=== PATIENT | female | born 1995 | race American Indian/Alaskan Native ===

== ENCOUNTER 2021-12-11 21:17 | Emergency (ER) | payer OTHER, MEDICAID ==
[2021-12-11] MEDS ORDERED: Acetaminophen/oxyCODONE 325-5 MG Tab PO ONE (21:18)
[2021-12-11] MEDS ORDERED: Ketorolac 30 MG/ML SDV IVPUSH ONE (21:52)
[2021-12-11] MEDS ORDERED: Morphine 4 MG/ML VIAL IVPUSH ONE (21:53)
[2021-12-11] MEDS ORDERED: Sodium Chloride 0.9% 10 ML Syringe FLUSH PRN (22:09)
[2021-12-11] MEDS ORDERED: Lidocaine 2% Viscous Solution 15 ML UD PO ONE (22:22)
[2021-12-11 22:33] LABS: ESTIMATED GFR 80 mL/min (>60)
[2021-12-11] MEDS ORDERED: Cephalexin 500 MG Cap PO STA (22:49)
[2021-12-11] MEDS ORDERED: Lidocaine 2% Viscous Solution 15 ML UD TOP ONE (23:12)
[2021-12-12 01:18] VITALS: BP 113/67; PULSE 71
== END 2021-12-12 00:15 | disposition home or self-care (01) ==
LOC: FB.ED 21:17
DX: S82.142A Displaced bicondylar fracture of left tibia, initial encounter for closed fracture (principal); S60.512A Abrasion of left hand, initial encounter; S60.511A Abrasion of right hand, initial encounter; S80.812A Abrasion, left lower leg, initial encounter; S80.811A Abrasion, right lower leg, initial encounter; F10.129 Alcohol abuse with intoxication, unspecified; Z88.5 Allergy status to narcotic agent; Y90.0 Blood alcohol level of less than 20 mg/100 ml; V29.9XXA Motorcycle rider (driver) (passenger) injured in unspecified traffic accident, initial encounter
CPT/HCPCS: 36415; 73560; 73600; 80053; 80307; 85025; 85610; 85730; 96374; 96375; 99284; A9270; J1885; J2270; J3490

== ENCOUNTER 2022-01-03 17:37 | Emergency (ER) | payer MEDICAID ==
[2022-01-03 17:59] VITALS: BP 125/81; PULSE 110
== END 2022-01-03 21:15 ==
LOC: FB.ED 17:37
DX: T81.49XA Infection following a procedure, other surgical site, initial encounter (principal)
CPT/HCPCS: 36415; 85025; 86140; 99282; 99284

== ENCOUNTER 2022-01-09 19:05 | Emergency (ER) | payer MEDICAID ==
[2022-01-11 21:44] VITALS: BP 130/73; PULSE 103
== END 2022-01-09 20:05 | disposition home or self-care (01) ==
LOC: FB.ED 19:05
DX: S82.142A Displaced bicondylar fracture of left tibia, initial encounter for closed fracture (principal); Z88.5 Allergy status to narcotic agent; Z86.16 Personal history of COVID-19
CPT/HCPCS: 99282

== ENCOUNTER 2022-02-28 11:10 | Emergency (ER) | payer MEDICAID ==
[2022-02-28] MEDS: Acetaminophen 500 MG Tab PO ONE (11:32)
[2022-02-28] MEDS ORDERED: Apixaban 5 MG Tab PO SCH (12:15)
[2022-02-28] MEDS: Iopamidol 755 Mg/ML 75 ML Bottle IV ONE (13:11)
[2022-02-28] MEDS: ClonazePAM 0.5 MG Tab PO ONE (14:39)
[2022-02-28] MEDS: Apixaban 5 MG Tab PO SCH (14:39)
[2022-02-28 15:56] VITALS: BP 109/65; PULSE 99
[2022-02-28] MEDS ORDERED: Apixaban 5 MG Tab PO ONE (18:35)
== END 2022-02-28 15:00 | disposition home or self-care (01) ==
LOC: FB.ED 11:10
DX: I82.402 Acute embolism and thrombosis of unspecified deep veins of left lower extremity (principal); E66.9 Obesity, unspecified; Z68.31 Body mass index [BMI] 31.0-31.9, adult; Z88.5 Allergy status to narcotic agent; Z88.8 Allergy status to other drugs, medicaments and biological substances; Z86.16 Personal history of COVID-19
CPT/HCPCS: 36415; 71275; 85027; 85379; 86140; 99284; A9270-GY; Q9967

== ENCOUNTER 2022-05-13 19:40 | Emergency (ER) | payer MEDICAID ==
[2022-05-13] MEDS ORDERED: traMADol 50 MG Tab PO ONE (22:30)
[2022-05-13 22:51] VITALS: BP 123/61; PULSE 88
== END 2022-05-13 22:50 | disposition home or self-care (01) ==
LOC: FB.ED 19:40
DX: S89.92XA Unspecified injury of left lower leg, initial encounter (principal); M23.92 Unspecified internal derangement of left knee; M25.462 Effusion, left knee; E66.9 Obesity, unspecified; Z68.30 Body mass index [BMI] 30.0-30.9, adult; Z88.6 Allergy status to analgesic agent; Z88.5 Allergy status to narcotic agent; Z88.8 Allergy status to other drugs, medicaments and biological substances; Z79.899 Other long term (current) drug therapy; W01.10XA Fall on same level from slipping, tripping and stumbling with subsequent striking against unspecified object, initial encounter
CPT/HCPCS: 73562-LT; 99283; A9270-GY